=== PATIENT | female | born 1995 | race Caucasian/White ===

== ENCOUNTER 2017-03-09 15:14 | Emergency (ER) | payer OTHER | END 2017-03-09 16:25 | disposition home or self-care (01) | LOC: ER1 15:14 | DX: Z53.21 Procedure and treatment not carried out due to patient leaving prior to being seen by health care provider (principal) ==

== ENCOUNTER 2021-07-30 03:08 | Observation (INO) | payer OTHER ==
[~2021-07-30] VITALS: Ht 152.4 cm; Wt 67.1 kg
[~2021-07-30 03:08] MED LIST: ELIQUIS 5 MG TAB5 MG PO; LOPRESSOR 25 MG25 MG PO; LOPRESSOR100 MG PO; LOPRESSOR50 MG PO; METOPROLOL TARTRATE PO; TIKOSYN125 MCG PO
[2021-07-30 04:17] LABS: HEMOGLOBIN 11.9 gm/dl (12.3-15.3); RED BLOOD COUNT 4.04 M/UL (4.00-5.10); WHITE BLOOD COUNT 7.4 K/UL (4.5-11.0)
[2021-07-30 04:47] LABS: BUN/CREATININE RATIO 13 (0-10)
[2021-07-30] MEDS ORDERED: LOPRESSOR 50 MG50 MG PO (08:10)
[2021-07-30] MEDS ORDERED: LASIX40 MG PO (08:12)
[2021-07-30] MEDS ORDERED: PROTONIX 40 MG40 M1 PO (08:12)
[2021-07-30] MEDS ORDERED: LIPITOR40 MG PO (08:12)
[2021-07-30] MEDS ORDERED: PACERONE200 MG PO (08:13)
[2021-07-30] MEDS ORDERED: FLONASE ALLER15.8 ML (08:13)
[2021-07-30] MEDS ORDERED: SYMBICORT 160-1 INHA INH (08:13)
[2021-07-30 11:44] LABS: BUN/CREATININE RATIO 10 (0-10)
[2021-07-31 07:29] LABS: BUN/CREATININE RATIO 13 (0-10)
[2021-07-31] MEDS ORDERED: LOPRESSOR 50 MG50 MG PO (13:13)
== END 2021-07-31 14:13 | disposition home or self-care (01) ==
LOC: ER1 03:08 → MED SURG 4 05:37 → CDU 05:37 → MED SURG 4 21:31
PROVIDERS: Internal Medicine; Physician Assistant; Student in an Organized Health Care Education/Training Program; ADMIT Internal Medicine
DX: I48.0 Paroxysmal atrial fibrillation (principal); R00.0 Tachycardia, unspecified; E87.6 Hypokalemia; I42.1 Obstructive hypertrophic cardiomyopathy; Z86.73 Personal history of transient ischemic attack (TIA), and cerebral infarction without residual deficits; Z95.810 Presence of automatic (implantable) cardiac defibrillator; Z87.891 Personal history of nicotine dependence; Z79.01 Long term (current) use of anticoagulants; Z79.899 Other long term (current) drug therapy; Z20.822 Contact with and (suspected) exposure to COVID-19
CPT/HCPCS: 36415; 71045; 80048; 80053; 82550; 82553; 83735; 83874; 84100; 84439; 84443; 84484; 84703; 85025; 85379; 93005; 94640; 94664; 94760; 96365; 96375; 99285; G0378; J0153; J3475; J3480; J7070; U0002

== ENCOUNTER 2021-10-14 02:57 | Emergency (ER) | payer OTHER ==
[~2021-10-14 02:57] MED LIST changes: +FLONASE ALLER15.8 ML; +LASIX40 MG PO; +LIPITOR40 MG PO; +LOPRESSOR 50 MG50 MG PO; +PACERONE200 MG PO; +PROTONIX 40 MG40 M1 PO; +SYMBICORT 160-1 INHA INH
[2021-10-14 03:19] LABS: HEMOGLOBIN 15.2 gm/dl (12.3-15.3); RED BLOOD COUNT 5.15 M/UL (4.00-5.10); WHITE BLOOD COUNT 8.6 K/UL (4.5-11.0)
[2021-10-14 03:44] LABS: BUN/CREATININE RATIO 8 (0-10)
[2021-10-14] MEDS ORDERED: LOPRESSOR 50 MG50 MG PO (05:58)
== END 2021-10-14 06:54 | disposition home or self-care (01) ==
LOC: ER1 02:57
PROVIDERS: Physician Assistant Medical
DX: I48.0 Paroxysmal atrial fibrillation (principal); Z95.0 Presence of cardiac pacemaker; F17.210 Nicotine dependence, cigarettes, uncomplicated; F41.9 Anxiety disorder, unspecified
CPT/HCPCS: 71045; 80053; 80307; 81001; 82550; 82553; 83735; 84439; 84443; 84484; 84703; 85025; 85610; 93005; 99285; G0480